=== PATIENT | male | born 1960 | race Caucasian/White ===

== ENCOUNTER 2017-12-04 09:43 | Emergency (ER) | payer BC, OTHER ==
[2017-12-04] MEDS ORDERED: Sodium Chloride 0.9% 1,000 ML IV ONE (10:28)
[2017-12-04] MEDS ORDERED: Ondansetron 4 MG/2 ML SDV IVPUSH ONE (10:28)
[2017-12-04] MEDS ORDERED: Sodium Chloride 0.9% 10 ML Syringe FLUSH PRN ×2 (10:28→11:29)
[2017-12-04] MEDS ORDERED: fentaNYL 100 MCG/2 ML SDV IVPUSH ONE ×2 (10:28→13:49)
--- NOTE | 2017-12-04 10:41 | EDM.PDOC ---
ED HPI GENERAL MEDICAL PROBLEM - General Chief Complaint: Gastrointestinal Problem Stated Complaint: CHRON'S FLARE UP Time Seen by Provider: 12/04/17 10:31 Source of Information: Reports: Patient History Limitations: Reports: No Limitations - History of Present Illness INITIAL COMMENTS - FREE TEXT/NARRATIVE: 56-year-old male presents for evaluation and treatment of abdominal pain. Patient was he is having a flare of his Crohn's disease. Reports he's been experiencing pain for the last several weeks with the last week being the worst. Reports the abdominal pain is generalized. Reports associated symptoms of diarrhea and urgency. He states he is having difficulty sleeping due to the pain. He did feel lightheaded earlier due to the pain. Currently rates the pain as an 8 out of 10. Patient sees Dr. Miramontes in [place]. He did see Margy Mcnamara nurse practitioner about 2 or 3 weeks ago. Reports he had a CT scan done. He is currently on mesalamine, probiotic and sulfasalazine. Reports he does is supposed to start Humira but due to insurance difficulties has not started this medication yet. No fevers, nausea, vomiting, melena, hematochezia or syncope. Multiple previous abdominal surgeries including appendectomy and bowel resection. Abdominal Pain Score (Numeric/FACES): 8 - Related Data Allergies Allergy/AdvReac Type Severity Reaction Status Date / Time No Known Allergies Allergy Verified 12/04/17 09:58 Home Meds: Home Meds Delzicol 2 tab PO TID 04/13/16 [History] Losartan [Cozaar] 100 mg PO DAILY 04/13/16 [History] Cholecalciferol (Vitamin D3) [Vitamin D3] 2,000 unit PO DAILY 09/03/16 [History] Multivitamin [Multi-Vitamin Daily] 1 tab PO DAILY 09/03/16 [History] sulfaSALAzine 1,000 mg PO BID 09/03/16 [History] Ciprofloxacin [IJD: Ciprofloxacin HCl] 500 mg PO BID #20 tab 12/04/17 [Rx] L Acidophil/B Lactis/B Longum [Florajen3] 460 mg PO DAILY 12/04/17 [History] metroNIDAZOLE [Flagyl] 500 mg PO Q8H #30 tab 12/04/17 [Rx] traMADol [Ultram] 50 mg PO Q6H PRN #20 tab 12/04/17 [Rx] Past Medical History Cardiovascular History: Reports: Hypertension Respiratory History: Reports: None Gastrointestinal History: Reports: Inflammatory Bowel Disease, Other (See Below) Other Gastrointestinal History: Crohns disease Genitourinary History: Reports: None Musculoskeletal History: Reports: Fracture Other Musculoskeletal History: Ribs Neurological History: Reports: None Psychiatric History: Reports: Addiction Endocrine/Metabolic History: Reports: None Hematologic History: Reports: Blood Transfusion(s) Immunologic History: Reports: None Oncologic (Cancer) History: Reports: None Dermatologic History: Reports: None - Infectious Disease History Infectious Disease History: Reports: None - Past Surgical History HEENT Surgical History: Reports: Other (See Below) Other HEENT Surgeries/Procedures: neck surgery GI Surgical History: Reports: Appendectomy, Other (See Below) Other GI Surgeries/Procedures: colon resection in 2006. Neurological Surgical History: Reports: C-Spine Social & Family History - Family History Family Medical History: Noncontributory - Tobacco Use Smoking Status *Q: Current Every Day Smoker Years of Tobacco use: 30 Packs/Tins Daily: 0.5 - Caffeine Use Caffeine Use: Reports: Coffee - Alcohol Use Days Per Week of Alcohol Use: 7 Number of Drinks Per Day: 6 Total Drinks Per Week: 42 - Recreational Drug Use Recreational Drug Use: No Drug Use in Last 12 Months: No - Living Situation & Occupation Living situation: Reports: , with Significant Other Occupation: Employed ED ROS GENERAL - Review of Systems Review Of Systems: See Below Constitutional: Denies: Fever GI/Abdominal: Reports: Abdominal Pain (generalized), Diarrhea (5-6 episodes per day), Other (stool urgency). Denies: Hematochezia, Melena, Nausea, Vomiting : Reports: No Symptoms Neurological: Denies: Syncope ED EXAM, GI/ABD - Physical Exam Exam: See Below Exam Limited By: No Limitations General Appearance: Alert, WD/WN, No Apparent Distress Ears: Normal External Exam Nose: Normal Inspection Throat/Mouth: Normal Inspection, Normal Lips, Normal Voice, No Airway Compromise Respiratory/Chest: No Respiratory Distress, Lungs Clear, Normal Breath Sounds Cardiovascular: Normal Peripheral Pulses, Regular Rate, Rhythm, No Murmur GI/Abdominal Exam: Normal Bowel Sounds, Soft, Tender (generalized). No: Distended Neurological: Alert, Oriented, Normal Cognition Psychiatric: Normal Affect, Normal Mood Skin Exam: Warm, Dry, Normal Color Course - Vital Signs Last Recorded V/S: Last Vital Signs Temp 36.7 C 12/04/17 16:15 Pulse 78 12/04/17 16:15 Resp 14 12/04/17 16:15 BP 108/68 12/04/17 16:15 Pulse Ox 97 12/04/17 16:15 Orthostatic Blood Pressure [ 96/73 Standing] Orthostatic Blood Pressure [ 110/73 Sitting] Orthostatic Blood Pressure [ 99/70 Supine] - Orders/Labs/Meds Labs: Laboratory Tests 12/04/17 12/04/17 Range/Units 10:10 10:10 WBC 10.77 H (4.23-9.07) K/mm3 RBC 4.13 L (4.63-6.08) M/mm3 Hgb 13.6 L (13.7-17.5) gm/L Hct 40.9 (40.1-51.0) % MCV 99.0 H (79.0-92.2) fl MCH 32.9 H (25.7-32.2) pg MCHC 33.3 (32.2-35.5) g/dl RDW Std Deviation 45.7 H (35.1-43.9) fL Plt Count 479 H (163-337) K/mm3 MPV 8.9 L (9.4-12.3) fl Neutrophils % (Manual) 48 (40-60) % Band Neutrophils % 8 (0-10) % Lymphocytes % (Manual) 27 (20-40) % Atypical Lymphs % 0 % Monocytes % (Manual) 14 H (2-10) % Eosinophils % (Manual) 2 (0.8-7.0) % Basophils % (Manual) 1 (0.2-1.2) Platelet Estimate Adequate RBC Morph Comment Normal Sodium 139 (136-145) mEq/L Potassium 3.7 (3.5-5.1) mEq/L Chloride 104 (98-107) mEq/L Carbon Dioxide 24 (21-32) mEq/L Anion Gap 14.7 (5-15) BUN 8 (7-18) mg/dL Creatinine 0.9 (0.7-1.3) mg/dL Est Cr Clr Drug Dosing 94.63 mL/min Estimated GFR (MDRD) > 60 (>60) mL/min BUN/Creatinine Ratio 8.9 L (14-18) Glucose 100 (74-106) mg/dL Calcium 9.6 (8.5-10.1) mg/dL Total Bilirubin 0.3 (0.2-1.0) mg/dL AST 25 (15-37) U/L ALT 27 (16-63) U/L Alkaline Phosphatase 94 (46-116) U/L C-Reactive Protein 7.7 H* (<1.0) mg/dL Total Protein 7.4 (6.4-8.2) g/dl Albumin 3.2 L (3.4-5.0) g/dl Globulin 4.2 gm/dL Albumin/Globulin Ratio 0.8 L (1-2) Lipase 88 (73-393) U/L Ethyl Alcohol 0.00 (0.00) gm% Meds: Medications Discontinued Medications Generic Name Dose Route Start Last Admin Trade Name Freq PRN Reason Stop Dose Admin Diatrizoate Meglum/Diatrizoate Sod 120 ml 12/04/17 11:29 12/04/17 12:45 Gastrografin 37% PO 12/04/17 11:30 90 ml ONETIME ONE Administration Fentanyl 50 mcg 12/04/17 10:28 12/04/17 11:10 Sublimaze IVPUSH 12/04/17 10:29 50 mcg ONETIME ONE Administration Fentanyl 50 mcg 12/04/17 13:49 12/04/17 13:56 Sublimaze IVPUSH 12/04/17 13:50 50 mcg ONETIME ONE Administration Sodium Chloride 1,000 mls @ 999 mls/hr 12/04/17 10:28 12/04/17 11:11 Normal Saline IV 12/04/17 11:28 999 mls/hr ONETIME ONE Administration Iopamidol 150 ml 12/04/17 11:29 12/04/17 12:45 Isovue-300 (61%) IVPUSH 12/04/17 11:30 125 ml ONETIME ONE Administration Methylprednisolone Sodium Succinate 60 mg 12/04/17 14:56 12/04/17 15:15 Solu-Medrol IVPUSH 12/04/17 14:57 60 mg ONETIME ONE Administration Ondansetron HCl 4 mg 12/04/17 10:28 12/04/17 11:08 Zofran IVPUSH 12/04/17 10:29 4 mg ONETIME ONE Administration Sodium Chloride 10 ml 12/04/17 10:28 12/04/17 11:11 Saline Flush FLUSH 10 ml ASDIRECTED PRN Administration Keep Vein Open Sodium Chloride 10 ml 12/04/17 11:29 12/04/17 12:45 Saline Flush FLUSH 10 ml ONETIME PRN Administration IV FLUSH - Radiology Interpretation Free Text/Narrative:: Abdomen: Supine and upright views of the abdomen were obtained. Comparison: No prior plain film abdominal x-ray, previous CT abdomen and pelvis study of 04/13/16. Mildly dilated small bowel loops are scattered within the abdomen. No free air is seen. Surgical clips are seen within the right lower abdomen. Phleboliths are seen within the pelvis. Bony structures are unremarkable. Impression: 1. Mildly slightly dilated small bowel loops within the abdomen. Minimal partial small bowel obstruction is possible. 2. Other incidental notes. CT abdomen and pelvis Technique: Multiple axial sections were obtained from above the dome of the diaphragm inferiorly through the pubic symphysis. Intravenous and oral contrast was utilized. Delayed images were obtained from above the iliac crest inferiorly through the pubic symphysis. Comparison: Previous CT abdomen and pelvis exam of 04/13/16. Findings: Bowel wall thickening and narrowing is seen within the transverse colon. In this area there is also thickening of adjacent small bowel loops. Bowel wall thickening causes some luminal narrowing within the small bowel loop. These findings are felt compatible with areas of Crohn's disease. Visualized lung bases show nothing acute. Liver shows no focal parenchymal abnormality. Spleen appears within normal limits. Adrenal glands show no nodule. Kidneys show symmetric contrast enhancement without hydronephrosis or mass. Pancreas appears normal. Aorta shows no aneurysmal dilatation. Several surgical clips seen within the upper right pelvis. No pelvic mass or adenopathy is seen. Delayed images show contrast throughout both ureters and within the bladder. Impression: 1. Focal bowel wall thickening and narrowing is seen within the transverse colon. Adjacent to this finding there is bowel wall thickening and mild inflammatory change within a loop of small bowel also causing luminal narrowing. Both these findings are likely due to Crohn's disease. 2. Other incidental findings as noted above. - Re-Assessments/Exams Free Text/Narrative Re-Assessment/Exam: 12/04/17 11:46 Air-fluid lines seen on supine upright x-ray. Cannot rule out bowel obstruction. Will obtain a CT with IV and oral contrast to further evaluate. 12/04/17 14:40 CT results return. I will attempt to get a hold of GI regarding this case. Dr. Howell was in surgeon will call back shortly. 12/04/17 15:43 This case with GI on-call, Dr. Howell, he recommended we contact Dr. Miramontes regarding his patient is in the office. Case discussed with Dr. miramontes . He recommends lead 60 mg IV Solu-Medrol tonight in the ER. Recommended starting ciprofloxacin 500 mg twice a day and Flagyl 500 mg 3 times a day. Tramadol 100 mg as needed for pain. Departure - Departure Time of Disposition: 15:58 Disposition: Home, Self-Care 01 Condition: Fair Clinical Impression: Crohn's disease - Discharge Information Prescriptions: Ciprofloxacin [IJD: Ciprofloxacin HCl] 500 mg PO BID #20 tab metroNIDAZOLE [Flagyl] 500 mg PO Q8H #30 tab traMADol [Ultram] 50 mg PO Q6H PRN #20 tab PRN Reason: Pain Referrals: Millicent Alcala NP [Primary Care Provider] - Maryan Miramontes MD [Consulting Physician] - Forms: ED Department Discharge Additional Instructions: Take the tramadol 1-2 tabs every 4-6 hours as needed for severe pain. Ciprofloxacin 1 tab twice a day for 10 days. Flagyl 1 tab 3 times a day for 10 days. Recommend taking the antibiotics with food. Follow-up with your GI's office on Saturday. Please return to the ER for symptoms change or worsen. recommend clear liquids and bland diet. may advance to a normal diet as tolerated.
--- NOTE | 2017-12-04 11:26 | CR ---
Abdomen: Supine and upright views of the abdomen were obtained. Comparison: No prior plain film abdominal x-ray, previous CT abdomen and pelvis study of 04/13/16. Mildly dilated small bowel loops are scattered within the abdomen. No free air is seen. Surgical clips are seen within the right lower abdomen. Phleboliths are seen within the pelvis. Bony structures are unremarkable. Impression: 1. Mildly slightly dilated small bowel loops within the abdomen. Minimal partial small bowel obstruction is possible. 2. Other incidental notes. Diagnostic code #3
[2017-12-04] MEDS ORDERED: Diatrizoate Meglumine/Diatrizoate Sodium 37% 120 ML Bottle PO ONE (11:29)
[2017-12-04] MEDS ORDERED: Iopamidol 612 MG/ML 150 ML Bottle IVPUSH ONE (11:29)
--- NOTE | 2017-12-04 13:25 | CT ---
CT abdomen and pelvis Technique: Multiple axial sections were obtained from above the dome of the diaphragm inferiorly through the pubic symphysis. Intravenous and oral contrast was utilized. Delayed images were obtained from above the iliac crest inferiorly through the pubic symphysis. Comparison: Previous CT abdomen and pelvis exam of 04/13/16. Findings: Bowel wall thickening and narrowing is seen within the transverse colon. In this area there is also thickening of adjacent small bowel loops. Bowel wall thickening causes some luminal narrowing within the small bowel loop. These findings are felt compatible with areas of Crohn's disease. Visualized lung bases show nothing acute. Liver shows no focal parenchymal abnormality. Spleen appears within normal limits. Adrenal glands show no nodule. Kidneys show symmetric contrast enhancement without hydronephrosis or mass. Pancreas appears normal. Aorta shows no aneurysmal dilatation. Several surgical clips seen within the upper right pelvis. No pelvic mass or adenopathy is seen. Delayed images show contrast throughout both ureters and within the bladder. Impression: 1. Focal bowel wall thickening and narrowing is seen within the transverse colon. Adjacent to this finding there is bowel wall thickening and mild inflammatory change within a loop of small bowel also causing luminal narrowing. Both these findings are likely due to Crohn's disease. 2. Other incidental findings as noted above. Diagnostic code #3
[2017-12-04] MEDS ORDERED: methylPREDNISolone Sodium Succinate 40 MG/1 ML SDV IVPUSH ONE (14:56)
[2017-12-04 16:27] VITALS: BP 108/68
== END 2017-12-04 16:20 | disposition home or self-care (01) ==
LOC: JD.ED 09:43
DX: K50.90 Crohn's disease, unspecified, without complications (principal); F17.210 Nicotine dependence, cigarettes, uncomplicated; Z79.899 Other long term (current) drug therapy
CPT/HCPCS: 36415; 74019; 74177; 80053; 83690; 85025; 86140; 96361; 96374; 96375; 96376; 99285; G0480; J2405; J2920; J3010; J7040; J7050; Q9963; Q9967; 99284

== ENCOUNTER 2019-06-28 14:11 | Emergency (ER) | payer BC, OTHER ==
[2019-06-28 14:21] VITALS: BP 132/97; PULSE 88
--- NOTE | 2019-06-28 14:30 | EDM.PDOC ---
ED HPI GENERAL MEDICAL PROBLEM - General Chief Complaint: Upper Extremity Injury/Pain Stated Complaint: LT PINKY FINGER INJURY Time Seen by Provider: 06/28/19 14:24 Source of Information: Reports: Patient History Limitations: Reports: No Limitations - History of Present Illness INITIAL COMMENTS - FREE TEXT/NARRATIVE: 58-year-old male attends the ED with his this morning. He states last night he tripped up and fell and jammed his left fifth finger between some blocks. This resulted in a partial avulsion of the distal nail on the ulnar aspect which he replaced. He has suffered an abrasion to the dorsal surface of the finger just distal to the nailbed. However the entire finger is black and blue. Was both the volar and dorsal aspects. Last tetanus toxoid is 2 years ago. Of note the patient is [id number]. Onset: Sudden Onset Date: 06/28/19 Onset Time: 22:00 Duration: Hour(s): Location: Reports: Upper Extremity, Left (Left fifth finger) Quality: Reports: Ache, Throbbing Severity: Moderate Improves with: Reports: Rest Worsens with: Reports: Other Context: Reports: Trauma (Tripped and fell jamming up the left finger between some patio blocks at home mostly.). 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) (Advil when necessary) Left Finger-Little Pain Score (Numeric/FACES): 2 - Related Data Allergies Allergy/AdvReac Type Severity Reaction Status Date / Time No Known Allergies Allergy Verified 12/04/17 09:58 Home Meds: Home Meds Losartan [Cozaar] 100 mg PO DAILY 04/13/16 [History] Multivitamin [Multi-Vitamin Daily] 1 tab PO DAILY 09/03/16 [History] sulfaSALAzine 1,000 mg PO BID 09/03/16 [History] Adalimumab [Humira] 40 mg SQ ASDIRECTED 06/28/19 [History] Doxycycline [Vibramycin] 100 mg PO BID #20 cap 06/28/19 [Rx] Past Medical History Cardiovascular History: Reports: Hypertension Respiratory History: Reports: None Gastrointestinal History: Reports: Inflammatory Bowel Disease, Other (See Below) Other Gastrointestinal History: Crohns disease Genitourinary History: Reports: None Musculoskeletal History: Reports: Fracture Other Musculoskeletal History: Ribs Neurological History: Reports: None Psychiatric History: Reports: Addiction Endocrine/Metabolic History: Reports: None Hematologic History: Reports: Blood Transfusion(s) Immunologic History: Reports: None Oncologic (Cancer) History: Reports: None Dermatologic History: Reports: None - Infectious Disease History Infectious Disease History: Reports: None - Past Surgical History HEENT Surgical History: Reports: Other (See Below) Other HEENT Surgeries/Procedures: neck surgery GI Surgical History: Reports: Appendectomy, Other (See Below) Other GI Surgeries/Procedures: colon resection in 2006. Neurological Surgical History: Reports: C-Spine Social & Family History - Family History Family Medical History: Noncontributory - Caffeine Use Caffeine Use: Reports: Coffee - Living Situation & Occupation Living situation: Reports: , with Significant Other Occupation: Employed Review of Systems - Review of Systems Review Of Systems: See Below Constitutional: Denies: Chills, Diaphoresis, Fever, Weakness Eyes: Reports: No Symptoms Ears: Reports: No Symptoms Nose: Reports: No Symptoms Mouth/Throat: Reports: No Symptoms Respiratory: Reports: No Symptoms Cardiovascular: Reports: No Symptoms GI/Abdominal: Reports: Other Genitourinary: Reports: No Symptoms (Patient has a history of Crohn's disease and his on Humira which is been working quite well for control of disease process.) Musculoskeletal: Reports: Other Skin: Reports: Bruising Neurological: Reports: No Symptoms (Soft tissue bruising of the entire left fifth finger. Has a subungual hematoma left fifth finger as well.) Psychiatric: Reports: No Symptoms ED EXAM, GENERAL - Physical Exam Exam: See Below Exam Limited By: No Limitations General Appearance: Alert, WD/WN, No Apparent Distress Eye Exam: Bilateral Eye: Normal Inspection Extremities: Other (Examination confined to the left hand shows ecchymoses of the dorsal and volar aspect of the left fifth finger. He has a loss of skin superficially just proximal to the base of the fingernail on her aspect. Appears that the nail partially avulsed from the nailbed on the ulnar aspect. He does have a subungual hematoma upright taking up about 30% of the nail fold.) Neurological: Alert, Oriented, CN II-XII Intact, Normal Cognition Psychiatric: Normal Affect, Normal Mood Skin Exam: Warm, Dry, Other (Abrasion dorsal aspect left fifth finger) Course - Vital Signs Last Recorded V/S: Last Vital Signs Temp 37.2 C 06/28/19 14:16 Pulse 88 06/28/19 14:16 Resp 16 06/28/19 14:16 BP 132/97 H 06/28/19 14:16 Pulse Ox 97 06/28/19 14:16 - Orders/Labs/Meds Orders: Active Orders 24 hr Category Date Time Status Fingers Fifth Digit Lt F4 [CR] Stat Exams 06/28/19 14:25 Taken Meds: Medications Discontinued Medications Generic Name Dose Route Start Last Admin Trade Name Hakan PRN Reason Stop Dose Admin Doxycycline Hyclate 200 mg 06/28/19 15:48 Vibramycin PO 06/28/19 15:49 ONETIME ONE - Radiology Interpretation Free Text/Narrative:: 58-year-old male presents to the ED after falling and jamming up his left fifth finger last night. Please his finger travel between a couple of [employer] stones. He has pain throughout the distal and proximal phalanx. He has a subungual hematoma. He has an abrasion at the base of the nail on the dorsal aspect of the finger. It appears that the nail has been partially avulsed from the nailbed. Does have an associated subungual hematoma. Tetanus toxoid is up-to- date 2 years ago. Plan x-ray of the left fifth finger to be done to make sure there is no FRACTURES. - Re-Assessments/Exams Free Text/Narrative Re-Assessment/Exam: 06/28/19 15:45 x-rays of the fifth finger revealed a fracture of the distal phalanx in adequate position. Is a vertical type fracture that travels down the shaft of the posterior aspect of the distal phalanx. Since the nail is been partially avulsed but is back in place this essentially an open fracture. Patient will be treated with antibiotics doxycycline 100 mg twice a day for next 10 days to prevent secondary infection. Daily cleanse the wound with soap and water and place antibody ointment such as bacitracin or Polysporin and wear a aluminum splint to protect area for the next 5 weeks. He will be given the initial dose of doxycycline 200 mg in the ED as the drug stores are now closed for the weekend. Departure - Departure Time of Disposition: 15:46 Disposition: Home, Self-Care 01 Condition: Fair Clinical Impression: Fracture of distal phalanx of finger of left hand, Abrasion, finger w/o infection Partial avulsion of fingernail Qualifiers: Encounter type: initial encounter Qualified Code(s): S61.309A - Unspecified open wound of unspecified finger with damage to nail, initial encounter - Discharge Information *PRESCRIPTION DRUG MONITORING PROGRAM REVIEWED*: Not Applicable *COPY OF PRESCRIPTION DRUG MONITORING REPORT IN PATIENT CARLOS: Not Applicable Prescriptions: Doxycycline [Vibramycin] 100 mg PO BID #20 cap Instructions: Finger Fracture, Adult, [id number], Nail Bed Injury Referrals: Millicent Alcala [employer] WORK[employer] [Primary Care Provider] - Forms: ED Department Discharge Additional Instructions: Evaluation the emergency room today in regards to injuries to the left fifth finger that occurred last night from a fall with blunt force trauma to the tip of the finger. This resulted in partial avulsion of the fingernail from the nailbed on the ulnar aspect but is back in normal position at this time. There is a over lying abrasion on the dorsal aspect of the finger making this an open fracture essentially. Therefore you will need to take antibiotic toxic and 100 mg twice daily for 10 days to prevent secondary wound infection and bone infection. Daily cleanse area with soap and water. Showering is okay. Then apply topical antibiotic such as bacitracin or Polysporin once daily and cover with a bandage so that it stays clean. A lumen splint to protect the finger for the next 5 weeks. After that you can resume normal range of motion protect the finger from injury for another upper couple of weeks. I'll up with personal care provider if any signs of infection develop such as redness, swelling, increased pain, or obvious pus. Motrin 600 mg every 6 hours as needed for pain relief. - My Orders Last 24 Hours: My Active Orders 06/28/19 14:25 Fingers Fifth Digit Lt F4 [CR] Stat - Assessment/Plan Last 24 Hours: My Active Orders 06/28/19 14:25 Fingers Fifth Digit Lt F4 [CR] Stat
[2019-06-28] MEDS ORDERED: Doxycycline 100 MG Cap PO ONE (15:48)
--- NOTE | 2019-06-29 09:22 | CR ---
Left 5th finger: Four views of the left 5th finger were obtained. Comparison: No prior finger or hand exam is available. Tuft fracture is seen within the distal right 5th finger. No proximal bony abnormality is seen. Soft tissue swelling is identified. Impression: 1. Distal tuft fracture with soft tissue swelling. Diagnostic code #3
== END 2019-06-28 16:05 | disposition home or self-care (01) ==
LOC: JD.ED 14:11
DX: S62.637A Displaced fracture of distal phalanx of left little finger, initial encounter for closed fracture (principal); I10 Essential (primary) hypertension; Z79.899 Other long term (current) drug therapy; W01.10XA Fall on same level from slipping, tripping and stumbling with subsequent striking against unspecified object, initial encounter
CPT/HCPCS: 73140; 99283; A9270